=== PATIENT | female | born 1970 | race Caucasian/White ===

== ENCOUNTER 2021-10-19 05:39 | Inpatient (IN) | payer BC, OTHER ==
[2021-10-17 15:01] LABS: CLARITY,URINE CLEAR (CLEAR); COLOR,URINE YELLOW (YELLOW); KETONES,URINE NEGATIVE (NEGATIVE); LEUKOCYTE ESTERASE ,URINE NEGATIVE (NEGATIVE); NITRITE,URINE NEGATIVE (NEGATIVE); PROTEIN,URINE DIPSTICK NEGATIVE (NEGATIVE); URINE UROBILINOGEN 0.2 mg/dL (0.2 - 1)
[2021-10-17 15:11] LABS: BASOPHILS % 0.5 % (0.0-1.0); EOSINOPHILS # (AUTO) 0.1 (0.0-0.4); EOSINOPHILS % 1.1 % (0.0-6.0); HEMATOCRIT 40.8 % (34.2-44.1); HEMOGLOBIN 12.7 g/dL (12.0-16.0); LYMPHOCYTES # (AUTO) 2.3 (1.0-3.2); LYMPHOCYTES % 27.8 % (18.0-39.1); MEAN CORPUSCULAR HEMOGLOBIN 29.3 pg (28-32); MEAN CORPUSCULAR HGB CONC 31.1 g/dL (31-35); MONOCYTES # (AUTO) 0.5 (0.2-0.8); MONOCYTES % 6.4 % (4.4-11.3); NEUTROPHILS # (AUTO) 5.3 (2.1-6.9); NEUTROPHILS % 63.8 % (38.7-80.0); PLATELET COUNT 258 x10e3/uL (140-360); RED BLOOD COUNT 4.34 x10e6/uL (3.6-5.1); RED CELL DISTRIBUTION WIDTH 13.5 % (11.7-14.4)
[2021-10-17 15:41] LABS: HIV 1&2 AB SCREEN NON-REACTIVE (NONREACTIVE)
[~2021-10-19] VITALS: Ht 175.3 cm; Wt 116.1 kg
[2021-10-19] MEDS ORDERED: B COMPLEX1 EACH PO (06:06)
[2021-10-19] MEDS ORDERED: MULTI-VITAMIN1 EACH PO (06:06)
[2021-10-19] MEDS ORDERED: Vitamin D3 PO (06:07)
[2021-10-19] MEDS ORDERED: BUPIVACAINE LIPOSOME/PF 266 MG/20 ML IJ ONE (07:52)
[2021-10-19] MEDS ORDERED: HYDROMORPHONE 1MG/1ML INJ ONE (08:07)
[2021-10-19] MEDS ORDERED: ACETAMINOPHEN 1000 MG/100 ML 100 ML IV ONE (08:07)
[2021-10-19] MEDS ORDERED: BUPIVACAINE 0.25% 30ML SDV ONE (08:33)
[2021-10-19] MEDS ORDERED: SIMETHICONE 80 MG CHEW PO PRN (10:45)
[2021-10-19] MEDS ORDERED: DIPHENHYDRAMINE HCL 25 MG CAP PO PRN (10:45)
[2021-10-19] MEDS ORDERED: BISACODYL 5 MG TAB EC PO PRN (10:45)
[2021-10-19] MEDS ORDERED: NALOXONE HCL INJ 0.4 MG/ML AMP IV PRN (11:00)
[2021-10-19] MEDS: HYDROMORPHONE 0.2MG/ML-SOD CHL 30ML PCA SYRINGE IV PRN (11:00)
[2021-10-19] MEDS ORDERED: ONDANSETRON HCL INJ 2MG/ML 2ML 2 MG/ML VIAL IV PRN (11:00)
[2021-10-19] MEDS ORDERED: DIPHENHYDRAMINE HCL INJ 50 MG/ML VIAL IM PRN (11:00)
[2021-10-19] MEDS ORDERED: FENTANYL CITRATE/PF 100MCG/2 ML INJ ONE ×2 (11:06→13:19)
[2021-10-19] MEDS ORDERED: GENTAMICIN 80MG/NS 100 ML 100 ML IV ONE (11:32)
[2021-10-19] MEDS ORDERED: ROCURONIUM BROMIDE 10 MG/ML 5ML VIAL IV ONE (12:19)
[2021-10-19] MEDS ORDERED: GLYCOPYRROLATE INJ 0.2 MG/ML VIAL ONE (12:19)
[2021-10-19] MEDS ORDERED: PROPOFOL IV EMULSION 10 MG/ML 20 ML VIAL ONE (12:19)
[2021-10-19] MEDS ORDERED: ONDANSETRON HCL INJ 2MG/ML 2ML 2 MG/ML VIAL ONE (12:19)
[2021-10-19] MEDS ORDERED: KETOROLAC TROMETHAMINE 30 MG/ML VIAL ONE (12:19)
[2021-10-19] MEDS ORDERED: POVIDONE IODINE 0.05% 0.05 % ML PO ONE (12:19)
[2021-10-19] MEDS ORDERED: NEOSTIGMINE 1 MG/ML 10ML VIAL ONE (12:19)
[2021-10-19] MEDS ORDERED: DEXAMETHASONE SOD PHOS INJ 4 MG/ML SDV ONE (12:19)
[2021-10-19] MEDS ORDERED: LIDOCAINE HCL 2% LOCAL INJ 5 ML SDV VIAL INJ ONE (12:19)
[2021-10-19 12:24] VITALS: BP 118/76
[2021-10-19 12:55] VITALS: BP 121/75
[2021-10-19] MEDS ORDERED: MIDAZOLAM HCL 2 MG/2 ML VIAL ONE (13:19)
[2021-10-19] MEDS ORDERED: KETAMINE HCL INJ 50 MG/ML 10 ML VIAL ONE (13:19)
[2021-10-19] MEDS: DEXTROSE 5%/LACTATED RINGERS 1,000 ML IV SCH ×2 (14:16)
[2021-10-19] MEDS: CLINDAMYCIN PHOS 900MG/ 50ML 50 ML IV SCH (16:00)
[2021-10-19 17:08] VITALS: BP 105/60
[2021-10-19] MEDS: GENTAMICIN 80MG/NS 100 ML 100 ML IV SCH (17:59)
[2021-10-19 20:00] VITALS: BP 114/53
[2021-10-19] MEDS: DIPHENHYDRAMINE HCL 25 MG CAP PO PRN (20:21)
[2021-10-19 21:19] VITALS: BP 114/53
[2021-10-20] VITALS (8 sets, daily range): BP systolic 92–112; BP diastolic 54–67
[2021-10-20] MEDS: GENTAMICIN 80MG/NS 100 ML 100 ML IV SCH ×2 (02:00→10:43)
[2021-10-20 05:05] LABS: BASOPHILS % 0.2 % (0.0-1.0); EOSINOPHILS % 0.2 % (0.0-6.0); HEMATOCRIT 31.1 % (34.2-44.1); HEMOGLOBIN 9.9 g/dL (12.0-16.0); LYMPHOCYTES # (AUTO) 2.5 (1.0-3.2); LYMPHOCYTES % 24.9 % (18.0-39.1); MEAN CORPUSCULAR HEMOGLOBIN 29.9 pg (28-32); MEAN CORPUSCULAR HGB CONC 31.8 g/dL (31-35); MONOCYTES # (AUTO) 0.6 (0.2-0.8); NEUTROPHILS # (AUTO) 6.8 (2.1-6.9); NEUTROPHILS % 68.2 % (38.7-80.0); PLATELET COUNT 214 x10e3/uL (140-360); RED BLOOD COUNT 3.31 x10e6/uL (3.6-5.1); RED CELL DISTRIBUTION WIDTH 13.5 % (11.7-14.4)
[2021-10-20 05:25] LABS: ANION GAP 9.2 mmol/L (8-16); CALCIUM 8.8 mg/dL (8.4-10.2); CREATININE, SERUM 0.95 mg/dL (0.57-1.11); POTASSIUM 4.2 mmol/L (3.5-5.1)
[2021-10-20] MEDS: DIPHENHYDRAMINE HCL 25 MG CAP PO PRN ×2 (05:36→09:03)
[2021-10-20] MEDS: HYDROMORPHONE 0.2MG/ML-SOD CHL 30ML PCA SYRINGE IV PRN (05:36)
[2021-10-20] MEDS: CLINDAMYCIN PHOS 900MG/ 50ML 50 ML IV SCH ×2 (08:00)
[2021-10-20] MEDS ORDERED: IBUPROFEN 400 MG TAB PO PRN (09:30)
[2021-10-20] MEDS ORDERED: HYDROCODONE/APAP 5MG-325MG TAB PO PRN (09:30)
[2021-10-20] MEDS: KETOROLAC TROMETHAMINE 30 MG/ML VIAL IV PRN ×2 (09:40→17:17)
[2021-10-20] MEDS: DOCUSATE SODIUM 100 MG CAP PO PRN ×2 (09:45→21:57)
[2021-10-20] MEDS: DEXTROSE 5%/LACTATED RINGERS 1,000 ML IV SCH ×3 (12:30→22:52)
[2021-10-21 00:18] VITALS: BP 128/80
[2021-10-21 04:02] VITALS: BP 115/67
[2021-10-21] MEDS ORDERED: ONDANSETRON HCL 4 MG ORAL DISINTEGRATING TAB PO PRN (06:45)
[2021-10-21] MEDS: KETOROLAC TROMETHAMINE 30 MG/ML VIAL IV PRN ×2 (08:37→16:26)
[2021-10-21] MEDS: DEXTROSE 5%/LACTATED RINGERS 1,000 ML IV SCH ×2 (08:37→14:44)
[2021-10-21 08:41] VITALS: BP 130/72
[2021-10-21 09:02] VITALS: BP 130/72
[2021-10-21 09:05] VITALS: BP 130/72
[2021-10-21 11:38] VITALS: BP 127/71
[2021-10-21] MEDS ORDERED: MOTRIN200 MG PO (16:06)
[2021-10-21] MEDS ORDERED: ULTRAM50 MG PO (16:06)
[2021-10-21] MEDS ORDERED: SLOW RELEASE I143 MG PO (16:07)
[2021-10-21] MEDS ORDERED: COLACE100 MG PO (16:08)
== END 2021-10-21 16:43 | disposition home or self-care (01) | DRG 743 ==
LOC: OR 05:39 → PACU V 10:59 → OBSVTOIN 10:59 → MED/SURG 12:14
PROVIDERS: ADMIT Specialist; ATTEND Specialist
PROC: 0UB70ZZ Excision of Bilateral Fallopian Tubes, Open Approach (ICD-10-PCS; 2021-10-19)
PROC: 0UT20ZZ Resection of Bilateral Ovaries, Open Approach (ICD-10-PCS; 2021-10-19)
PROC: 0DNW0ZZ Release Peritoneum, Open Approach (ICD-10-PCS; 2021-10-19)
PROC: 0UT90ZZ Resection of Uterus, Open Approach (ICD-10-PCS; principal; 2021-10-19 07:30)
DX: D25.1 Intramural leiomyoma of uterus (principal); N94.89 Other specified conditions associated with female genital organs and menstrual cycle; N73.6 Female pelvic peritoneal adhesions (postinfective); Z88.8 Allergy status to other drugs, medicaments and biological substances; Z20.822 Contact with and (suspected) exposure to COVID-19; E66.9 Obesity, unspecified; Z68.37 Body mass index [BMI] 37.0-37.9, adult
CPT/HCPCS: 36415; 71046; 80048; 81003; 84702; 85025; 86850; 86900; 87390; 88307; 93005; G0433; G0435; J1100; J1170; J1200; J1580; J1885; J2001; J2250; J2405; J2710; J3010; U0002